=== PATIENT | female | born 1955 | race Caucasian/White ===

== ENCOUNTER → 2017-01-01 | Outpatient (CLI) | payer OTHER, BC ==
[~2017-01-01] MED LIST: ALEV220C2 PO; ALEV220T26 PO; COUM2.5T11 PO; FISH5CAP PO; GLUC500C5 PO; GLUCTAB6; NUCY50TA9 PO; OMEP20CA3 PO; TRIAPOW43 PO; TYLE167L PO; VITA400T2 PO
[2017-01-01 12:09] LABS: MEAN CORPUSCULAR HEMOGLOBIN 31.3 pg (27.0-33.0); MEAN CORPUSCULAR HGB CONC 34.5 g/dl (32.0-36.5); MEAN CORPUSCULAR VOLUME 90.8 fl (80.0-96.0); RED CELL DISTRIBUTION WIDTH 13.2 % (11.5-14.5); WHITE BLOOD COUNT 6.2 K/mm3 (4.0-10.0)
[2017-01-01 12:17] LABS: INR 0.96
[2017-01-01 12:24] LABS: ALBUMIN 4.1 GM/DL (3.2-5.2); ALBUMIN/GLOBULIN RATIO 1.24 (1.00-1.93); ALKALINE PHOSPHATASE 97 U/L (45-117); ALT/SGPT 50 U/L (12-78); ANION GAP 7 MEQ/L (8-16); AST/SGOT 24 U/L (15-37); BILIRUBIN,TOTAL 0.5 MG/DL (0.2-1.0); BLOOD UREA NITROGEN 15 MG/DL (7-18); CARBON DIOXIDE LEVEL 30 MEQ/L (21-32); CHLORIDE LEVEL 103 MEQ/L (98-107); CREATININE FOR GFR 0.63 MG/DL (0.55-1.02); GLOMERULAR FILTRATION RATE > 60.0 (>51); GLUCOSE, FASTING 66 MG/DL (70-105); SODIUM LEVEL 140 MEQ/L (136-145); TOTAL PROTEIN 7.4 GM/DL (6.4-8.2)
--- NOTE | 2017-01-01 12:24 | REP ---
Chest x-ray: Two views. History: Vasa reflux, left knee arthritis. . Comparison study: Comparison chest x-ray February 17, 2010 from [facility]. . Findings: The lungs are well inflated and free of infiltrate. The pleural angles are sharp. The heart size is normal. Pulmonary vasculature is not increased. No significant bony abnormality is seen. There are surgical clips in the right upper quadrant of the abdomen. Impression: Negative chest x-ray. Signed by Giovany Roman MD 01/01/2017 12:16 P
--- NOTE | 2017-01-01 14:46 | ECGEPIP ---
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 Nonspecific repolarization abnormalities. No prior tracing for comparison Clinical correlation advised Electronically Signed On 01-01-2017 14:46:18 EDT by Connor Head
== END ==
LOC: M ADMPAT 10:13
PROVIDERS: ATTEND Orthopaedic Surgery
DX: K21.9 Gastro-esophageal reflux disease without esophagitis (principal); M17.12 Unilateral primary osteoarthritis, left knee

== ENCOUNTER 2017-01-08 05:51 | Inpatient (IN) | payer OTHER, BC ==
[2017-01-01 10:59] VITALS: BP 162/97
--- NOTE | 2017-01-06 15:01 | HPE ---
DATE OF ADMISSION: 01/08/2017 CHIEF COMPLAINT: Left knee pain and stiffness. Torri is a pleasant 61-year-old female with progressively worsening left knee pain and stiffness. She has failed to improve with conservative management. She has elected for surgery for her continued symptoms with weightbearing activities and activities of daily living. She was consented for a left total knee arthroplasty by Dr. Marie. Medical optimization pending with Dr. Nick and is not present for review today. CURRENT MEDICATIONS: - naproxen 220 mg twice a day - fish oil 600 mg daily - MSM 1500 mg daily - triamterine hydrochlorothiazide 37.5/25 mg once daily - omeprazole 20 mg daily ALLERGIES: 1. ADVAIR. 2. MORPHINE. 3. FLONASE. 4. PRAVASTATIN. 5. PREDNISONE. 6. TRAMADOL. 7. TYLENOL #3. 8. ZOCOR. MEDICAL HISTORY: Asthma. Hyperlipidemia. Gastroesophageal reflux. Hypertension. Migraines. Osteoarthritis (OA) of the knees and lumbosacral spine. Insomnia. Venous insufficiency. Cystocele. SURGICAL HISTORY: Cholecystectomy. Total hysterectomy with bilateral salpingo-oophorectomy. Right total knee arthroplasty. SOCIAL HISTORY: Patient does drink three cups of coffee daily. She is a former smoker and quit in 1988. Rarely uses alcohol. FAMILY HISTORY: Father coronary artery disease with history of myocardial infarction. REVIEW OF SYSTEMS: Patient denies fevers, chills, nausea, vomiting, or diarrhea. She denies chest pain, shortness of breath, or cough. She has no recent upper respiratory or urinary tract infection symptoms. She does have persistent pain in the left knee with weightbearing activities. PHYSICAL EXAMINATION: Well nourished, well developed female in no apparent distress. MUSCULOSKELETAL: Patient is walking with a slight limp favoring the left side. Inspection of the left knee revealed no gross abnormality. The skin is intact. There was no hip irritability elicited with range of motion. The calf is soft and nontender to palpation. There is irritability with extremes of motion at the knee. Her pedal pulses are palpable. NECK: Supple without lymphadenopathy or JVD. LUNGS: Clear to auscultation bilaterally. HEART: Regular rate and rhythm. ABDOMEN: Bowel sounds are present. VITAL SIGNS: Height 62 inches, weight 218.2 pounds, BMI 39.9, temperature 97.9, blood pressure elevated at 130/98, pulse 80, respirations 14. LABORATORY DATA: Chest x-ray is negative. EKG shows a sinus rhythm with small Q waves in leads III and aVF. Nonspecific repolarization abnormalities. Comprehensive metabolic profile: Fasting glucose decreased at 66, BUN 15, creatinine for GFR 0.63. GFR greater than 60. Sodium 140, potassium 4.0, chloride 103, carbon dioxide 30, anion gap decreased at 7, calcium 9.0, AST 24, ALT 50, alkaline phosphatase 97, total bilirubin 0.5, total protein 7.4, albumin 4.1, albumin globulin ration 1.24. Complete blood count: WBC is 6.2, RBC is 4.65, hemoglobin 14.6, hematocrit 42.2 , platelet count 241. Erythrocyte sedimentation rate 20. Prothrombin time 12.9. INR 0.96. Urinalysis negative with the exception of a small amount of mucous. Urine culture shows no growth. Nasal and sinus cultures show normal stuart. DIAGNOSIS: Symptomatic osteoarthritis (OA) of the left with x-rays notable for end stage degenerative changes. PLAN: The patient has consented for a left total knee arthroplasty with Dr. Marie. VERONICA
[~2017-01-08] VITALS: Ht 160 cm; Wt 95.0 kg
[2017-01-08] VITALS (8 sets, daily range): BP systolic 138–168; BP diastolic 73–88
[2017-01-08] MEDS ORDERED: LR 1,000 ML IV ONE (06:00)
[2017-01-08] MEDS ORDERED: ACETAMINOPHEN 500 MG TAB PO ONE (06:15)
[2017-01-08] MEDS ORDERED: LR 1,000 ML IV SCH ×2 (06:15→10:45)
[2017-01-08] MEDS ORDERED: ROPIvacaine 0.5% 30 ML INJECTION (J2795) As Ordered ONE (06:26)
[2017-01-08] MEDS ORDERED: ceFAZolin 1GM INJ (J0690) As Ordered ONE (06:27)
[2017-01-08] MEDS ORDERED: TRANEXAMIC ACID 100 MG/ML 10ML VIAL As Ordered ONE (06:27)
[2017-01-08] MEDS ORDERED: BUPIVACAINE HCL 0.5% 10 ML VIAL As Ordered ONE (06:27)
[2017-01-08] MEDS ORDERED: EPINEPHrine INJ 1 MG/ML 1ML AMP As Ordered ONE (06:27)
[2017-01-08] MEDS ORDERED: fentaNYL 100 MCG/2 ML INJECTION (J3010) As Ordered ONE ×3 (07:05→08:10)
[2017-01-08] MEDS ORDERED: MIDAZOLAM INJ 2 MG/2 ML VIAL (J2250) As Ordered ONE ×2 (07:05→08:10)
[2017-01-08] MEDS ORDERED: ONDANSETRON 4MG/2ML VIAL (J2405) As Ordered ONE (08:10)
[2017-01-08] MEDS ORDERED: PROPOFOL 500 MG/50 ML VIAL As Ordered ONE (08:10)
[2017-01-08] MEDS ORDERED: ePHEDrine SULFATE 25 MG/5 ML(5MG/ML) SYRINGE As Ordered ONE ×2 (08:10→08:30)
[2017-01-08] MEDS ORDERED: LIDOCAINE 2% INJ 100 MG/5 ML SDV (FOR ANES.) As Ordered ONE (08:10)
[2017-01-08] MEDS ORDERED: PHENYLephrine HCL 500 MCG/5 ML (100MCG/ML) SYRINGE (J2370) As Ordered ONE (08:10)
[2017-01-08] MEDS ORDERED: MIDAZOLAM INJ 2 MG/2 ML VIAL (J2250) IV ONE ×2 (08:15→08:30)
[2017-01-08] MEDS ORDERED: fentaNYL 100 MCG/2 ML INJECTION (J3010) IV ONE ×2 (08:15)
[2017-01-08] MEDS ORDERED: PROPOFOL 200 MG/20 ML VIAL As Ordered ONE (08:56)
[2017-01-08] MEDS ORDERED: PERCOCET 5MG/325MG TAB PO PRN (10:45)
[2017-01-08] MEDS ORDERED: PATIENT IS CURRENTLY ON AN ON-Q PAIN BUSTER PAIN RELIEF SYSTEM XX SCH (10:45)
[2017-01-08] MEDS ORDERED: fentaNYL 100 MCG/2 ML INJECTION (J3010) IV PRN (10:45)
[2017-01-08] MEDS ORDERED: MEPERIDINE INJ 25 MG/ML VIAL (J2175) IV PRN (10:45)
[2017-01-08] MEDS ORDERED: ONDANSETRON 4MG/2ML VIAL (J2405) IV PRN (10:45)
[2017-01-08] MEDS ORDERED: METOCLOPRAMIDE INJ 10MG/2ML VIAL (J2765) IV PRN (10:45)
[2017-01-08] MEDS: HYDROmorphone HCL 1 MG/ML SYRINGE (J1170) IV PRN ×3 (11:10→20:54)
[2017-01-08] MEDS ORDERED: ACETAMINOPHEN TAB 650MG DOSE (2X325MG) PO PRN (11:15)
[2017-01-08] MEDS ORDERED: FLEET ENEMA PR PRN (11:15)
[2017-01-08] MEDS ORDERED: ONDANSETRON 4 MG TAB (S0181) PO PRN (12:00)
[2017-01-08] MEDS: ONDANSETRON 4MG/2ML VIAL (J2405) IV PRN ×2 (12:08→16:16)
--- NOTE | 2017-01-08 16:32 | RO ---
DATE OF PROCEDURE: 01/08/2017 PREPROCEDURE DIAGNOSIS: Left knee degenerative arthritis. POSTPROCEDURE DIAGNOSIS: Left knee degenerative arthritis. OPERATIVE PROCEDURE: Left total knee arthroplasty using a size 3 cruciate retaining femoral component, a size 3 tibial tray, 12.5 mm polyethylene insert, 32 mm polyethylene button. The prostheses was made by [employer], it was a PFC knee. SURGEON: Jacqueline Marie MD CONDITIONING MACHINE OPERATOR: Teresa Jackson ANESTHESIA: Spinal with left femoral nerve block. COMPLICATIONS: None. DRAINS: One PainBuster. SPECIMENS: Joint surface. ESTIMATED BLOOD LOSS: Less than 20 mL. DESCRIPTION OF PROCEDURE: Antibiotics were given intravenously preoperatively and a successful spinal and left femoral nerve block anesthetic was established. A tourniquet was placed in the left upper thigh and not inflated. The left lower extremity was prepped and draped in the usual sterile fashion. After the appropriate time out, the leg elevated and the tourniquet was inflated to 250 mmHg for 63 minutes. A longitudinal incision was made for a medial parapatellar approach to the knee. Bovie cautery was used to coagulate crossing vessels. Medial peripatellar arthrotomy was then performed. Subperiosteal dissection of the proximal medial portion of the tibia was performed for this varus knee. We then everted the patella and flexed the knee, placed the drill down the center of the femoral canal followed by the intramedullary nikki and the distal femoral cutting jig sat at 5 degrees valgus cut for a left knee at 10 mm resection level. It was pinned into position and the distal femoral cut performed. AP sizing jig measured between a 2.5 and a 3. I elected to go with the 3. It is noteworthy that she had significant hyperextension. She had significant hyperlaxity of her soft tissues, generalized laxity. I then used the 3 degrees external rotation block to pin it position, followed by the four-in-one block, secured to the distal femur, then performed the anterior-posterior chamfer cuts, taking great care to protect the surrounding soft tissues. We then exposed the proximal tibia and used the extramedullary alignment jig to make sure we were parallel to the mechanical axis of the tibia and we referenced off the medial tibial condyle. We set 4 mm resection level at that point. The block was then pinned in position and a secondary check with the extramedullary nikki confirmed that it appeared to be that we were parallel to the mechanical axis. We performed a proximal tibial osteotomy and then placed the laminar group exercise manager laterally and performed a completion medial meniscectomy with debridement of the posterior medial osteophytes, then placed the laminar group exercise manager medially and performed a completion lateral meniscectomy with debridement of the posterior lateral osteophytes. Then the spacer blocks, 12.5 fit the best. The 10 fit, but she still had the hyperlaxity in extension, but had good stability with varus-valgus stress testing both in flexion and extension, so the 12.5 actually provided better stability in the flexion-extension plane, but still was able to have good flexion. We then exposed the proximal tibia, sized for a #3 tibial tray, which was pinned into position, followed by the reamer and broach and then the trial polyethylene and trial femoral component, brought the knee into extension, everted the patella, performed a patellar osteotomy, sized for a #32 button. The lug holes were drilled. Patellofemoral prosthesis was placed and the patellofemoral tracking was anatomic. We then drilled the lug holes for the femur, removed all the trial components. Mrs. Teresa Jackson mixed the cement on the back table as I prepared the bony surfaces for cementing with a copious amount of sterile saline and pulsatile lavage irrigant solution. Mrs. Jackson was also critical to the success of the procedure in helping to manipulate the knee, helped with appropriate soft tissue retraction, helped to close the wound and prepare the patient amongst many other tasks. Once all the bony surfaces had been thoroughly dried, we cemented the tibial tray, removed excess cement, placed the polyethylene then cemented the femoral component, removed excess cement and brought the knee to extension. We everted the patella, and cemented the patella button, removed excess cement and held it with a clamp until the cement had hardened. While we were waiting, we copiously pulsatile lavage irrigated out the knee joint once again and then we closed the apex of the incision with two #1 PDS sutures, the medial parapatellar area was closed with a single #1 PDS suture, then a running #1 Stratafix double-arm was used to close the capsule. Then, the tourniquet was released. Tranexamic acid was placed in the knee prior to closure of the capsule and release of the tourniquet. We then irrigated again, closed the deep subdermal tissues with interrupted #2-0 PDS sutures, skin was closed with josue, covered by Adaptic dry sterile bulky dressing. The PainBuster catheter was placed after we closed the arthrotomy and then we closed the deep subdermal tissues and the skin. She was then transferred to the recovery room in stable condition. There were no intraoperative complications.
[2017-01-08] MEDS: LR 1,000 ML IV SCH ×2 (16:52→23:45)
[2017-01-08] MEDS ORDERED: WARFARIN SOD 5 MG TAB PO ONE (17:00)
--- NOTE | 2017-01-08 18:36 | CR.PDOC ---
[facility] Consultation Consultation DATE OF CONSULTATION: 01/08/17 PRIMARY CARE PHYSICIAN: Dr. Park Sanford REFERRING PROVIDER: Teresa Kimble ATTENDING PHYSICIAN: Dr. Dina Draper REASON FOR CONSULTATION/CHIEF COMPLAINT: Status-post L total Knee Arthroplasty HISTORY OF PRESENT ILLNESS: This is a 61 yo F with a PMH of HTN, HLD, asthma, GERD, migraines, osteoarthritis of bilateral knees and lumbosacral spine, insomnia, venous insufficiency, and cystocele who is presenting after L total knee arthroplasty today 01/08/17 post-operative day #0. reports surgery occurred ~8 AM and lasted until ~9:30 AM. Patient states she is doing okay and her L knee pain is starting to come on. Otherwise, she was feeling numb in her L knee earlier. She denies fevers, chills, headache, nausea, vomiting, abdominal pain, diarrhea, constipation, chest pain, SOB, cough, runny nose, sore throat, weakness in any of her extremities, swelling anywhere, or pain anywhere else. She offers no other acute complaints. MEDICATIONS: Naproxen 220 mg BID Fish Oil 600 mg qdaily MSM (methylsulfonylmethane) 1500 mg qdaily Triamterene HCTZ 37.5/25 mg qdaily Omeprazole 20 mg qdaily ALLERGIES: Advair Morphine Flonase Pravastatin Prednisone Tramadol Tylenol #3 Zocor: leg cramps PAST MEDICAL HISTORY: HTN HLD (genetic)--does not recall last lipid panel Asthma GERD Migraines (hormonal) Osteoarthritis of bilateral knees and lumbosacral spine Insomnia Venous insufficiency Cystocele PAST SURGICAL HISTORY: L Total Knee Arthroplasty Today R Total Knee Arthroplasty Cholecystectomy Total hysterectomy with bilateral salpingo-oophorectomy SOCIAL HISTORY: Lives at home with and pet beagle dogs. Smoked ~1/2 PPD x 20 years EtOH use: on occasion, 1 glass of wine sometimes with dinner Denies illicit drug use. 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 No exposures to asbestos/chemicals. No recent travel. FAMILY HISTORY: Mother: , Alzheimer's disease. Father: Heart condition, 2 massive MIs and was resuscitated for them Maternal Grandmother: Colon Ca Maternal Grandfather: of Prostate Ca Has 3 half brothers and 1/2 sister with no reported medical problems. All ROS negative except for those as stated above. PHYSICAL EXAMINATION: Vitals: T:97.1 BP:124/73 RR:16 P:77 O2 Saturation: 99 % room air General: Pleasant obese female lying in bed. Is calm and cooperative. In NAD. AAO x 3. HEENT: Head: normocephalic, atraumatic. Ears: grossly normal hearing bilaterally. Eyes: sclera are nonicteric. Nose: No external lesions. Neck: Supple. No thyromegaly. No cervical LAD bilaterally. Respiratory: Clear to auscultation bilaterally with no wheezes, rales, or rhonchi. Chest: Symmetrical chest rise bilaterally. Cardiovascular: Regular rate and rhythm, with no murmurs, rubs or gallops. Abdomen: Soft, nontender, nondistended, no hepatosplenomegaly appreciated. Bowel sounds present. Extremities: No swelling in either lower extremity bilaterally. Musculoskeletal: Normal ROM. Able to extend both lower extremities bilaterally. No drainage at bandage site of surgical site on L knee noted. Did not examine L knee with open bandage as patient just had operation. Neurological: no focal neurologic deficits appreciated bilaterally. Integumentary: skin free from rashes, lesions, abrasions Vascular: +2 radial and dorsalis pedis pulses palpable bilaterally. LABORATORY DATA: 01/01/17 CBC and CMP unremarkable and have been reviewed. MICROBIOLOGY: Urine Cx 01/01/17: no growth Micro Respiratory Specimen: normal stuart ELECTROCARDIOGRAM: SINUS RHYTHM at Rate of 61. Small Q waves III and aVF. Nonspecific repolarization abnormalities. No prior tracing for comparison Clinical correlation advised. Personally reviewed. RADIOLOGY: 01/01/17 CXR was negative and showed no acute cardiopulmonary infiltrates. ASSESSMENT: This is a 61 yo F who is presenting status-post L total knee arthroplasty post- operative day #0. The hospitalist service has been consulted for medical management of her chronic medical problems and to monitor her through recovery. PLAN: Status-post L Total Knee Arthroplasty: Management with PT/OT, pain control, bowel regimen, and DVT ppx per primary team. HTN: currently controlled on home medications. Patient receiving IVF at this time. Will hold off on HTN medications until IVF are completed and BP is stable without IVF. We will make sure patient is tolerating diet prior to restarting antihypertensive meds. Will resume triamterene/HCTZ 37.5/25 mg qdaily when ready with hold parameters. On EKG from 01/01, there were nonspecific repolarization abnormalities as well as small q waves in leads III and aVF. Will obtain another EKG for comparison to current heart function. Will evaluate/ monitor for signs of LVH. Asthma: Pulmonary Status--there was no signs of wheezing on exam. Satting in 90s on room air. Will continue to monitor for interventions as necessary. Will encourage incentive spirometer to prevent post-op pneumonia and atelectasis. HLD: will obtain lipid panel. Not on statins due to allergy. Home medication of fish oil can be given if desired. GERD: continue omeprazole. Osteoarthritis of Bilateral Knees and LS Spine: Pain control via primary team. Continue home medications as indicated. DVT ppx: as per primary team. Is on Immunizations as per protocol. CODE STATUS: FULL CODE My preceptor for this patient encounter was Dr. Dina Draper, and was physically present in the building during the encounter and was fully available. As needed, all aspects of the patient interview, examination, medical decision making process, and medical care plan development were reviewed and approved by the preceptor. Preceptor is aware and concurs with the plan as stated in the body of this note and will attest to such by his/her cosignature. Vital Signs/I&O Vital Signs Date Time Temp Pulse Resp B/P (MAP) Pulse Ox O2 Delivery O2 Flow Rate FiO2 01/08/17 17:14 95 Nasal Cannula 2.0 01/08/17 16:58 16 01/08/17 15:15 97.6 84 148/83 (104) Allergies Coded Allergies: Morphine (Unverified Allergy, Intermediate, severe vomiting, hallucinations, 01/01/17) Fluticasone (Verified Allergy, Unknown, 12/22/13) Pravastatin (Verified Allergy, Unknown, 12/22/13) Prednisone (Verified Allergy, Unknown, 12/22/13) Salmeterol (Verified Allergy, Unknown, 12/22/13) Simvastatin (Verified Allergy, Unknown, 12/22/13) TAPE (Unverified Allergy, Unknown, 01/01/17) adhesives Tramadol (Verified Adverse Reaction, Severe, SEVERE NAUSEA, SYNCOPE, ) Codeine (Verified Adverse Reaction, Mild, NAUSEA, 12/23/13) Home Medications Scheduled (Fish Oil 1200 mg) 1 Cap Cap, 2,400 MG PO DAILY, (Reported) (Aleve) 220 Mg Cap, 2 TAB PO DAILY, (Reported) Cholecalciferol (Vitamin D) 400 Unit Tab, 1,200 UNIT PO DAILY, (Reported) Glucosamine Sulfate (Glucosamine) 500 Mg Cap, 4,000 MG PO DAILY, (Reported) Omeprazole (Omeprazole) 20 Mg Cap, 20 MG PO DAILY, (Reported) Triamterene (Triamterene) 1 Pow Pow, 37.5 MG PO DAILY, (Reported) MARIMAR FREDERICK OGME-1 Jan 08, 2017 18:36
[2017-01-08] MEDS: METOCLOPRAMIDE INJ 10MG/2ML VIAL (J2765) IV PRN (19:58)
[2017-01-09] MEDS: ONDANSETRON 4MG/2ML VIAL (J2405) IV PRN ×2 (00:31→09:19)
[2017-01-09] MEDS: LR 1,000 ML IV SCH ×2 (00:45→20:00)
[2017-01-09] MEDS: HYDROmorphone HCL 1 MG/ML SYRINGE (J1170) IV PRN ×2 (01:23→06:45)
[2017-01-09 03:15] VITALS: BP 136/66
[2017-01-09 06:00] VITALS: BP 164/82
[2017-01-09] MEDS: METOCLOPRAMIDE INJ 10MG/2ML VIAL (J2765) IV PRN (06:11)
[2017-01-09 06:16] LABS: MEAN CORPUSCULAR HEMOGLOBIN 31.5 pg (27.0-33.0); MEAN CORPUSCULAR HGB CONC 34.9 g/dl (32.0-36.5); MEAN CORPUSCULAR VOLUME 90.4 fl (80.0-96.0); RED CELL DISTRIBUTION WIDTH 13.1 % (11.5-14.5); WHITE BLOOD COUNT 10.6 K/mm3 (4.0-10.0)
[2017-01-09 06:19] LABS: INR 1.15
[2017-01-09 06:43] LABS: ANION GAP 7 MEQ/L (8-16); BLOOD UREA NITROGEN 10 MG/DL (7-18); CALCIUM LEVEL 8.4 MG/DL (8.5-10.1); CARBON DIOXIDE LEVEL 31 MEQ/L (21-32); CHLORIDE LEVEL 101 MEQ/L (98-107); CHOLESTEROL LEVEL 218 MG/DL (<200); GLOMERULAR FILTRATION RATE > 60.0 (>51); GLUCOSE, FASTING 113 MG/DL (70-105); POTASSIUM SERUM 3.6 MEQ/L (3.5-5.1); SODIUM LEVEL 139 MEQ/L (136-145); TRIGLYCERIDES LEVEL 178 MG/DL (<150)
[2017-01-09] MEDS ORDERED: TAPENTADOL 50 MG TABLET (NUCYNTA) PO PRN (06:45)
[2017-01-09] MEDS ORDERED: SCOPOLAMINE 1.5 MG TRANSDERMAL TOP PRN (07:00)
[2017-01-09] MEDS ORDERED: ROPIvacaine 0.5% 30 ML INJECTION (J2795) ONE (07:23)
[2017-01-09] MEDS ORDERED: LIDOCAINE 1% MDV 20ML VIAL ONE (07:23)
[2017-01-09] MEDS ORDERED: EPINEPHrine INJ 1 MG/ML 1ML AMP ONE (07:23)
[2017-01-09] MEDS: MIRALAX *UNIT DOSE* 17GM PACKET PO SCH (08:16)
[2017-01-09] MEDS: PANTOPRAZOLE 40MG INJ (PROTONIX) (C9113) IV SCH (08:16)
[2017-01-09] MEDS: SENOKOT S TAB PO SCH ×2 (08:16→20:01)
[2017-01-09] MEDS: MOM 30ML SUSPENSION UDC PO SCH (08:16)
[2017-01-09] MEDS: FAMOTIDINE 20 MG TAB PO SCH (08:17)
[2017-01-09] MEDS ORDERED: OMEPRAZOLE 20 MG CAP PO SCH (09:00)
--- NOTE | 2017-01-09 09:04 | REP ---
Left knee two views postoperative study: There is a total knee arthroplasty with the components tightly applied and in satisfactory positions alignment. Skin josue are incidentally noted. Signed by Duke Patel MD 01/09/2017 08:56 A
[2017-01-09 10:00] VITALS: BP 164/81
[2017-01-09] MEDS: TAPENTADOL 50 MG TABLET (NUCYNTA) PO PRN ×2 (10:06→15:15)
[2017-01-09 14:00] VITALS: BP 140/60
--- NOTE | 2017-01-09 16:08 | ECGEPIP ---
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
[2017-01-09] MEDS ORDERED: WARFARIN SOD 5 MG TAB PO SCH (17:00)
[2017-01-09 22:00] VITALS: BP 157/74
[2017-01-10] MEDS: TAPENTADOL 50 MG TABLET (NUCYNTA) PO PRN ×3 (01:27→12:07)
[2017-01-10 06:00] VITALS: BP 136/78
[2017-01-10 06:17] LABS: INR 1.25
[2017-01-10 06:18] LABS: MEAN CORPUSCULAR HEMOGLOBIN 31.3 pg (27.0-33.0); MEAN CORPUSCULAR HGB CONC 34.4 g/dl (32.0-36.5); RED CELL DISTRIBUTION WIDTH 13.2 % (11.5-14.5); WHITE BLOOD COUNT 9.6 K/mm3 (4.0-10.0)
[2017-01-10 06:47] LABS: ANION GAP 5 MEQ/L (8-16); BLOOD UREA NITROGEN 7 MG/DL (7-18); CALCIUM LEVEL 8.6 MG/DL (8.5-10.1); CARBON DIOXIDE LEVEL 33 MEQ/L (21-32); CHLORIDE LEVEL 101 MEQ/L (98-107); CREATININE FOR GFR 0.39 MG/DL (0.55-1.02); GLOMERULAR FILTRATION RATE > 60.0 (>51); GLUCOSE, FASTING 99 MG/DL (70-105); POTASSIUM SERUM 3.6 MEQ/L (3.5-5.1); SODIUM LEVEL 139 MEQ/L (136-145)
[2017-01-10] MEDS: PANTOPRAZOLE 40MG INJ (PROTONIX) (C9113) IV SCH (08:10)
[2017-01-10] MEDS: SENOKOT S TAB PO SCH (08:10)
[2017-01-10] MEDS: FAMOTIDINE 20 MG TAB PO SCH (08:10)
[2017-01-10] MEDS: MOM 30ML SUSPENSION UDC PO SCH (08:10)
[2017-01-10] MEDS: MIRALAX *UNIT DOSE* 17GM PACKET PO SCH (08:11)
[2017-01-10] MEDS ORDERED: NUCY50TA9 PO (08:20)
[2017-01-10] MEDS ORDERED: COUM2.5T11 PO (08:25)
[2017-01-10] MEDS ORDERED: ZOFR20TA PO (08:25)
[2017-01-10] MEDS: LR 1,000 ML IV SCH (12:49)
--- NOTE | 2017-01-14 19:09 | DSES ---
DATE OF ADMISSION: 01/08/2017 DATE OF DISCHARGE: 01/10/2017 ATTENDING PHYSICIAN: Jacqueline Marie MD ADMITTING DIAGNOSIS: Left knee degenerative arthritis. OTHER DIAGNOSES: Asthma. Hyperlipidemia. Gastroesophageal reflux disease (GERD). Hypertension. Migraines. Insomnia. Venous insufficiency. Osteoarthritis of the knees and lumbosacral spine. DISCHARGE DIAGNOSES: Left knee degenerative arthritis, status post left total knee arthroplasty. OPERATION PERFORMED: Left total knee arthroplasty. HOSPITAL COURSE: The patient underwent a left total knee arthroplasty under spinal anesthesia which was uneventful. Her hospital course was without complication and she was up with physical therapy per their protocol, weightbearing as tolerated on the left lower extremity. She was discharged on oral pain medications and will resume her preoperative medications and diet. She will take Coumadin and use her thromboembolic deterrent stockings for 30 days postoperatively to prevent deep venous thrombosis. She will followup in our office in approximately 12 to 14 days for a wound check and staple removal. She is encouraged to contact our office sooner if there is any increased pain, drainage, bleeding, redness, numbness or tingling in her leg, fever greater than 101 degrees or any other concerns. Please see her medical record for additional details.
--- NOTE | 2017-01-14 19:18 | DSES ---
DATE OF ADMISSION: 01/08/2017 DATE OF DISCHARGE: 01/10/2017 ADDENEDUM: PLEASE ADD THE FOLLOWING TO JOB NUMBER [id number]. Before DISCHARGE DIAGNOSIS and OPERATION PERFORMED, can you put in a paragraph: HISTORY OF PRESENT ILLNESS: Patient is a 61-year-old female with continuing left knee pain and stiffness. She failed to improve with conservative measures, so she consented for an elective left total knee arthroplasty with Dr. Marie.
== END 2017-01-10 12:59 | disposition home health service (06) | DRG 470 ==
LOC: M OR 05:51 → M MS5PR 10:40
PROVIDERS: ADMIT Orthopaedic Surgery; ATTEND Orthopaedic Surgery
PROC: 0SRD0JZ Replacement of Left Knee Joint with Synthetic Substitute, Open Approach (ICD-10-PCS; principal; 2017-01-08 07:30)
DX: M17.12 Unilateral primary osteoarthritis, left knee (principal); Z79.899 Other long term (current) drug therapy; J45.909 Unspecified asthma, uncomplicated; E78.5 Hyperlipidemia, unspecified; K21.9 Gastro-esophageal reflux disease without esophagitis; I10 Essential (primary) hypertension; G43.909 Migraine, unspecified, not intractable, without status migrainosus; Z88.8 Allergy status to other drugs, medicaments and biological substances; Z88.5 Allergy status to narcotic agent; G47.00 Insomnia, unspecified; Z87.891 Personal history of nicotine dependence; I87.2 Venous insufficiency (chronic) (peripheral)

== ENCOUNTER → 2018-05-06 | Outpatient (REF) | payer OTHER, BC ==
[2018-05-06 15:20] LABS: IMMUNOGLOBULIN E 17.7 IU/ML (<100); IMMUNOGLOBULIN G 887 MG/DL (681-1648); IMMUNOGLOBULIN M 23 MG/DL (40-230)
[2018-05-09 08:06] LABS: D001-IgE D pteronyssinus <0.10 kU/L (Class 0); E001-IgE Cat Epith/Dander < 0.10 kU/L (Class 0); E005-IgE Dog Dander < 0.10 kU/L (Class 0); G002-IgE Bermuda Grass < 0.10 kU/L (Class 0); G008-IgE Kentucky Bluegrass < 0.10 kU/L (Class 0); M001-IgE Penicillium chrysogen < 0.10 kU/L (Class 0); M002 IgE Cladosporium herbaru < 0.10 kU/L (Class 0); M003 IgE Aspergillus fumigatu < 0.10 kU/L (Class 0); M006-IgE Alternaria alternata < 0.10 kU/L (Class 0); T001-IgE Maple/Box Elder < 0.10 kU/L (Class 0); T003-IgE Common Silver Birch < 0.10 kU/L (Class 0); T006-IgE Cedar, Mountain < 0.10 kU/L (Class 0); T007-IgE Oak, White < 0.10 kU/L (Class 0); T008-IgE Elm, American < 0.10 kU/L (Class 0); T015-IgE Ash, White < 0.10 kU/L (Class 0); T041-IgE Hickory, White < 0.10 kU/L (Class 0); T070-IgE White Mulberry < 0.10 kU/L (Class 0); W001-IgE Ragweed, Short < 0.10 kU/L (Class 0); W009-IgE Plantain, English < 0.10 kU/L (Class 0); W014-IgE Pigweed, Rough < 0.10 kU/L (Class 0); W018-IgE Sheep Sorrel < 0.10 kU/L (Class 0)
== END ==
LOC: M LAB REF 13:54
DX: R05 Cough (principal)

== ENCOUNTER → 2018-05-17 | Outpatient (CLI) | payer OTHER, BC ==
[2018-05-17 14:43] LABS: FREE THYROXINE INDEX 2.6 % (1.3-4.8); T UPTAKE 29 % (30-39); THYROXINE (T4) 8.8 UG/DL (4.5-12.0)
[2018-05-17 14:43] LABS: IMMUNOGLOBULIN M 22 MG/DL (40-230)
[2018-05-20 00:06] LABS: ACETYLCHOLINE RCPTOR BINDING A < 0.03 nmol/L (0.00-0.24)
== END ==
LOC: M SMT 09:19
DX: R05 Cough (principal)
CPT/HCPCS: 84443

== ENCOUNTER → 2018-05-25 | Outpatient (CLI) | payer OTHER, BC | LOC: M RAD 13:19 | DX: K44.9 Diaphragmatic hernia without obstruction or gangrene (principal); R05 Cough | CPT/HCPCS: 71250 ==

== ENCOUNTER → 2018-09-30 | Outpatient (CLI) | payer OTHER, BC ==
[~2018-09-30] MED LIST changes: -COUM2.5T11 PO; +COUM2.5T17 PO; +NUCY50TA19 PO; -NUCY50TA9 PO; +ZOFR4TAB16 PO
--- NOTE | 2018-09-30 18:30 | REP ---
MAXILLOFACIAL CT WITHOUT CONTRAST: HISTORY: Chronic rhinitis. The sinuses are clear. The ostiomeatal units are patent. The middle inferior nasal turbinates are partially paradoxical. The nasal septum is midline. The cribriform plate, medial howell of the orbits and optic canals are intact. The carotid canals form a segment of the posterolateral howell of the sphenoid sinus. The sphenoid sinus septum inserts into the right internal carotid canal wall. IMPRESSION: There is no acute or chronic sinusitis. Electronically Signed by Beny Vallejo MD 09/30/2018 06:31 P
== END ==
LOC: M RAD 17:29
PROVIDERS: ATTEND Internal Medicine Pulmonary Disease
DX: J31.0 Chronic rhinitis (principal)

== ENCOUNTER → 2024-06-24 | Outpatient (CLI) | payer BC, MEDICARE, OTHER ==
[~2024-06-24] MED LIST changes: -GLUCTAB6; +GLUCTAB7; +OMEP1CAP73 PO; -OMEP20CA3 PO; +PROHANCE 279.3MG/ML 15ML VIAL As Ordered ONE; +PROHANCE 279.3MG/ML 5ML VIAL As Ordered ONE
== END ==
LOC: M RAD 14:15
PROVIDERS: ATTEND Physician Assistant
DX: H90.3 Sensorineural hearing loss, bilateral (principal)
CPT/HCPCS: 70553; A9576

== ENCOUNTER → 2024-10-31 | Outpatient (CLI) | payer BC, MEDICARE, OTHER ==
[~2024-10-31] MED LIST changes: -PROHANCE 279.3MG/ML 15ML VIAL As Ordered ONE; -PROHANCE 279.3MG/ML 5ML VIAL As Ordered ONE
== END ==
LOC: M PLAIMG 08:32
PROVIDERS: ATTEND Internal Medicine Critical Care Medicine
DX: R94.2 Abnormal results of pulmonary function studies (principal); J84.10 Pulmonary fibrosis, unspecified; K44.9 Diaphragmatic hernia without obstruction or gangrene; I25.10 Atherosclerotic heart disease of native coronary artery without angina pectoris; I25.84 Coronary atherosclerosis due to calcified coronary lesion